=== PATIENT | female | born 1995 | race Caucasian/White ===

== ENCOUNTER 2017-06-20 00:38 | Emergency (ER) | payer OTHER ==
[~2017-06-20] VITALS: Ht 154.9 cm; Wt 70.5 kg
[~2017-06-20 00:38] MED LIST: CLINDAMYCIN HC300 MG PO; IBUPROFEN400 MG PO; IMPLANON SQ; Motrin PO; NOHOMEMEDS; TYLENOL REGULA325 MG PO; ZYVOX600 MG PO
[2017-06-20 00:59] LABS: BASOPHIL (%) 0.6 % (0-1); BASOPHIL COUNT 0.1 K/uL (0-0.1); EOSINOPHIL (%) 3.9 % (0-5); EOSINOPHIL COUNT 0.4 K/uL (0-0.3); HEMATOCRIT 33.6 % (36.0-46.0); HEMOGLOBIN 10.6 G/DL (11.9-15.5); IMMATURE GRANULOCYTE (%) 0.3 % (0.0-0.7); LYMPHOCYTE (%) 35.6 % (15-42); LYMPHOCYTE COUNT 3.6 K/uL (1.0-2.8); MCH 27.3 PG (29.0-34.0); MCHC 31.5 G/DL (30.0-36.0); MCV 86.6 FL (83-99); MONOCYTE (%) 10.3 % (3-12); NEUTROPHIL (%) 49.3 % (45-76); PLATELET COUNT 225 K/uL (156-360); RBC DIS.WIDTH-CV 13.3 % (11.8-14.6); RBC DIS.WIDTH-SD 41.7 % (39-53); RED BLOOD COUNT 3.88 M/uL (3.80-5.20); WHITE BLOOD COUNT 10.1 K/uL (4.1-10.2)
[2017-06-20 01:06] LABS: ALBUMIN 3.8 g/dL (3.2-4.8)
[2017-06-20 01:07] LABS: CHLORIDE 108 mEq/L (99-109); SODIUM 141 mEq/L (136-147)
[2017-06-20 01:09] LABS: GLUCOSE 97 mg/dL (70-99); TOTAL PROTEIN 7.4 g/dL (6.4-8.3)
[2017-06-20 01:11] LABS: TOTAL BILIRUBIN 0.5 mg/dL (0.0-1.0)
[2017-06-20 01:12] LABS: SERUM ETHYL ALCOHOL < 10 mg/dL
[2017-06-20 01:13] LABS: ALKALINE PHOSPHATASE 83 IU/L (3-129); CREATININE 0.9 mg/dL (0.6-1.3); GFR ESTIMATE (CALCULATED) > 59 mL/min/
[2017-06-20 01:14] LABS: AST (GOT) 19 IU/L (2-34)
[2017-06-20 01:15] LABS: UREA NITROGEN (BUN) 20 mg/dL (9-23)
[2017-06-20 01:16] LABS: ALT (GPT) 15 IU/L (3-49); SALICYLATE < 5.0 MG/DL (15-30)
[2017-06-20 01:17] LABS: ACETAMINOPHEN (TYLENOL) < 10 mcg/mL (10-30)
[2017-06-20 01:23] LABS: QUANTITATIVE HCG < 4.0 MIU/ML
[2017-06-20 01:50] VITALS: BP 125/79
== END 2017-06-20 01:50 ==
LOC: EME → EDBD 00:38 → EME 01:50
PROVIDERS: Emergency Medicine
DX: F12.90 Cannabis use, unspecified, uncomplicated (principal); F11.20 Opioid dependence, uncomplicated; Z88.0 Allergy status to penicillin; Z88.1 Allergy status to other antibiotic agents; F17.200 Nicotine dependence, unspecified, uncomplicated
CPT/HCPCS: 80053; 81003; 84702; 85025; 99281; 99284; G0480